=== PATIENT | female | born 1975 | race Caucasian/White ===

== ENCOUNTER → 2018-05-15 14:17 | Outpatient (CLI) | payer OTHER, MEDICAID, SELFPAY ==
--- NOTE | 2018-05-15 14:20 | DI.RAD.S_ITS ---
PROCEDURE: XR CHEST 2V INDICATIONS: cough TECHNIQUE: 2 views of the chest were acquired. COMPARISON: None. FINDINGS: Surgical changes and devices: None. Lungs and pleura: Lungs are clear. No pleural effusions or pneumothorax. Mediastinum: Mediastinal contours are normal. Heart size is normal. Bones and chest wall: No suspicious bony abnormalities. Soft tissues appear unremarkable. IMPRESSION: No active cardiopulmonary disease. Dictated by: Lay Alex M.D. on 05/15/2018 at 14:46 Approved by: Lay Alex M.D. on 05/15/2018 at 14:48
== END ==
PROVIDERS: Visit Provider Physician Assistant
DX: R05 Cough (principal)
CPT/HCPCS: 71046